=== PATIENT | female | born 1965 ===

== ENCOUNTER 2018-12-24 13:33 | Emergency (ER) | payer BC ==
[2018-12-24 13:43] VITALS: BP 118/72; PULSE 74; RESP 18; TEMP 97; O2SAT 99
--- NOTE | 2018-12-24 14:29 | ED PDOC ---
HPI: Eye Injury/Pain Time Seen by Provider: 12/24/18 13:48 Chief Complaint (Nursing): Eye Problem Chief Complaint (Provider): Bilateral Eye Redness, Itching, Burning History Per: Patient History/Exam Limitations: no limitations Onset/Duration Of Symptoms: Days (x2) Current Symptoms Are (Timing): Still Present Additional Complaint(s): 53 year old female presents to the ED for evaluation of bilateral eye itching and burning, mostly to the left for the past two days. Patient reports that she has been waking up with redness and green mucous discharge from the eye unrel ieved with OTC Visine drops. Denies head injury, eye trauma, foreign body sensation, vision changes, and glasses or contact use, but she does say she needs glasses. PMD: none provided Past Medical History Reviewed: Historical Data, Nursing Documentation, Vital Signs Vital Signs: Last Vital Signs Temp 97.0 F L 12/24/18 13:41 Pulse 74 12/24/18 13:41 Resp 18 12/24/18 13:41 BP 118/72 12/24/18 13:41 Pulse Ox 99 12/24/18 13:41 - Medical History PMH: No Chronic Diseases - Surgical History Surgical History: No Surg Hx - Family History Family History: States: Unknown Family Hx - Social History Current smoker - smoking cessation education provided: No Alcohol: None Drugs: Denies - Home Medications Home Medications: Ambulatory Orders Medication Instructions Recorded Erythromycin 0.5% [Erythromycin] 1 applic OD QID #1 tube 12/24/18 - Allergies Allergies/Adverse Reactions: Allergies Allergy/AdvReac Type Severity Reaction Status Date / Time No Known Allergies Allergy Verified 12/24/18 13:41 Review of Systems ROS Statement: Except As Marked, All Systems Reviewed And Found Negative Constitutional: Negative for: Fever, Chills Eyes: Positive for: Redness (bilateral eye redness, itching, burning with green mucous discharge). Negative for: Vision Change, Other (foriegn body) Physical Exam - Reviewed Nursing Documentation Reviewed: Yes Vital Signs Reviewed: Yes - Physical Exam Comments: GENERAL APPEARANCE: Patient is awake, alert, oriented x 3, in no acute distress. HEENT: (-) facial swelling and erythema, (-) facial blisters, (-) tenderness. LIDS & LASHES: Normal. PUPILS: Pupils equal round and reactive. EOMI's: Intact. LID EVERSION: (-) foreign body. CONJUNCTIVAE: bilateral conjunctival injection, left greater than right. CORNEA: no embedded foreign body noted, (-) infiltrate. ANTERIOR CHAMBER: (-) foreign body, (-) tear in iris, (-) hyphema. - ECG O2 Sat by Pulse Oximetry: 99 (RA) Pulse Ox Interpretation: Normal Medical Decision Making Medical Decision Making: Time: 1405 Initial Impression: conjunctivits Initial Plan: --Patient informed of treatment for conjunctivitis and will be given script upon d/c. Advised to follow up with clinic / ophthamologist for further eval. ED return parameters discussed. Patient verbalized agreement and understanding of plan and disposition. Scribe Attestation: Documented by Francia Rosas acting as a scribe for Neptali Samaniego PA-C. Provider Scribe Attestation: All medical record entries made by the Scribe were at my direction and personally dictated by me. I have reviewed the chart and agree that the record accurately reflects my personal performance of the history, physical exam, medical decision making, and the department course for this patient. I have also personally directed, reviewed, and agree with the discharge instructions and disposition. Disposition - Clinical Impression Clinical Impression: Conjunctivitis, acute, bilateral - Patient ED Disposition Is Patient to be Admitted: No Counseled Patient/Family Regarding: Studies Performed, Diagnosis, Need For Followup, Rx Given - Disposition Referrals: [facility] [Outside] Pan Luke MD [Staff Provider] - Disposition: Routine/Home Disposition Time: 14:05 Condition: STABLE Additional Instructions: Return to ED for new or worsening symptoms, fever >100.4, changes in vision, unable to open or close your eye. Follow up with the clinic or eye doctor as listed in 1-2 days. Take medications as prescribed Thank you for letting us take care of you today. You were treated for conjunctivitis. The emergency medical care you received today was directed at your acute symptoms. If you were prescribed any medication, please fill it and take as directed. It may take several days for your symptoms to resolve. Return to the Emergency Department if your symptoms worsen, do not improve, or if you have any other problems. Please contact your doctor in 2 days for re-evaluation and follow up / or call one of the physicians/clinics you have been referred to that are listed on the Patient Visit Information form that is included in your discharge packet. Bring any paperwork you were given at discharge with you along with any medications you are taking to your follow up visit. Our treatment cannot replace ongoing medical care by a primary care provider (PCP) outside of the emergency department. Prescriptions: Erythromycin 0.5% [Erythromycin] 1 applic OD QID #1 tube Instructions: Conjunctivitis ([place]) (DC) Forms: [facility] (Malagasy), [facility] ED School/Work Excuse Print Language: FINNISH - POA Present On Arrival: None
== END 2018-12-24 16:03 | disposition home or self-care (01) ==
LOC: H.ER 13:33
DX: H10.33 Unspecified acute conjunctivitis, bilateral (principal)